=== PATIENT | female | born 1960 | race African-American/Black ===

== ENCOUNTER 2022-05-28 13:28 | Emergency (ER) | payer MEDICAID ==
[~2022-05-28] VITALS: Ht 170.2 cm; Wt 180.0 kg
[2022-05-28 13:31] VITALS: BP 122/77
[2022-05-28] MEDS ORDERED: ONDANSETRON HCL 4MG/2ML INJ IV STA (14:21)
[2022-05-28] MEDS ORDERED: SODIUM CHLORIDE 0.9% 1,000 ML IV ONE (14:30)
[2022-05-28] MEDS ORDERED: FAMOTIDINE 20MG/2ML VIAL IV ONE (14:30)
[2022-05-28] MEDS ORDERED: ACETAMINOPHEN 500MG TABLET PO ONE (14:30)
[2022-05-28] MEDS ORDERED: DIPHENHYDRAMINE 50MG/ML VIAL IV ONE (14:45)
[2022-05-28 15:26] LABS: CHLORIDE 104 mEq/L (98-107)
[2022-05-28 15:27] LABS: HEMATOCRIT. 40.8 % (36.0-48.0); HEMOGLOBIN. 13.4 g/dL (12.0-16.0); MEAN CORPUSCULAR HEMOGLOBIN 25.2 pg (28.0-32.0); MEAN CORPUSCULAR VOLUME 76.6 fL (81.0-99.0); MEAN PLATELET VOLUME 10.4 fl (7.4-10.4); PLATELET 255 x1000/uL (130-400); RED BLOOD CELL COUNT 5.32 mill/uL (4.2-5.4); RED CELL DISTRIBUTION WIDTH 14.4 % (11.6-14.6)
[2022-05-28] MEDS ORDERED: FAMO-135 MT (16:39)
[2022-05-28] MEDS ORDERED: ACET-2708 MT (16:39)
[2022-05-28 18:00] LABS: PLATELET ESTIMATE NORMAL
== END 2022-05-28 17:39 | disposition home or self-care (01) ==
LOC: ER 13:28
DX: R19.7 Diarrhea, unspecified (principal); J90 Pleural effusion, not elsewhere classified; Z88.6 Allergy status to analgesic agent
CPT/HCPCS: 36415; 76705; 80053; 83690; 85025; 93005; 96361; 96374; 96375; 99285; J1200; J2405; J3490; J7030

== ENCOUNTER 2024-04-05 09:33 | Emergency (ER) | payer SELFPAY ==
[~2024-04-05] VITALS: Ht 167.6 cm; Wt 80.0 kg
[~2024-04-05 09:33] MED LIST: ACET-2708 MT; FAMO-135 MT
[2024-04-05 09:39] VITALS: O2SAT 100
[2024-04-05] MEDS: SODIUM CHLORIDE 0.9% 500 ML IV ONE (11:15)
[2024-04-05 12:07] LABS: CHLORIDE 103 mEq/L (98-107); POTASSIUM 3.4 mEq/L (3.5-5.1); SODIUM 139 mEq/L (136-145)
[2024-04-05 12:08] LABS: CARBON DIOXIDE 23 mEq/L (21-32)
[2024-04-05 12:09] LABS: CALCIUM 10.4 mg/dL (8.7-10.4)
[2024-04-05 12:13] LABS: CREATININE 0.9 mg/dL (0.6-1.0); GLUCOSE 121 mg/dL (70-105); UREA NITROGEN BLOOD 11 mg/dL (9-23)
[2024-04-05 12:15] LABS: ALANINE AMINOTRANSFERASE 14 IU/L (10-49); ALBUMIN 4.5 g/dL (3.2-4.8); ASPARTATE AMINOTRANSFERASE 22 IU/L (<34)
[2024-04-05 12:16] LABS: BILIRUBIN TOTAL 0.7 mg/dL (0.1-1.0); PROTEIN TOTAL 8.7 g/dL (6.0-8.3)
[2024-04-05] MEDS: ONDANSETRON HCL 4MG/2ML INJ IV STA (12:23)
[2024-04-05] MEDS: MORPHINE SULFATE 4 MG/ML INJ (FOR IV/IM USE) IV STA (12:24)
[2024-04-05 12:30] LABS: BASOPHILS % 0.8 % (0.0-2.0); EOSINOPHILS % 0.2 % (0.0-5.0); HEMATOCRIT. 40.5 % (36.0-48.0); HEMOGLOBIN. 12.6 g/dL (12.0-16.0); LYMPHOCYTES % 8.4 % (20.0-50.0); MEAN CORPUSCULAR HEMOGLOBIN 24.6 pg (28.0-32.0); MEAN CORPUSCULAR HGB CONC 31.1 g/dL (31.0-37.0); MEAN CORPUSCULAR VOLUME 78.9 fL (81.0-99.0); MONOCYTES % 3.6 % (2.0-8.0); RED BLOOD CELL COUNT 5.14 mill/uL (4.2-5.4); RED CELL DISTRIBUTION WIDTH 14.4 % (11.6-14.6); WHITE BLOOD COUNT 11.3 x1000/uL (4.5-11.0)
[2024-04-05 12:32] LABS: DIFFERENTIAL COMMENT 1
[2024-04-05 13:39] LABS: PLATELET 240 x1000/uL (130-400)
[2024-04-05 15:34] LABS: CLARITY URINE CLOUDY (CLEAR); COLOR URINE YELLOW (YELLOW); GLUCOSE URINE NEGATIVE (NEGATIVE); KETONES URINE TRACE (NEGATIVE); LEUKOCYTE ESTERASE URINE 2+ (NEGATIVE); NITRITE URINE NEGATIVE (NEGATIVE); OCCULT BLOOD URINE NEGATIVE (NEGATIVE); PROTEIN URINE TRACE (NEGATIVE); UROBILINOGEN URINE 0.2 E.U./dL (0.2-1.0)
[2024-04-05] MEDS ORDERED: SULF1TAB48 MT (15:36)
[2024-04-05 16:16] LABS: BACTERIA URINE 2+
[2024-04-05 16:17] LABS: RBC URINE 0-2 /hpf (0-2); SQUAMOUS EPITHELIAL CELL URINE 2+ /lpf (RARE/1+)
[2024-04-05 16:19] VITALS: BP 146/68; PULSE 81; RESP 18; TEMP 36.89184; O2SAT 100
== END 2024-04-05 16:19 | disposition home or self-care (01) ==
LOC: ER 09:37
DX: N39.0 Urinary tract infection, site not specified (principal); R10.84 Generalized abdominal pain; R11.2 Nausea with vomiting, unspecified; R19.7 Diarrhea, unspecified
CPT/HCPCS: 99285; 74176; 96374; 96361; 96375; 80053; 81003; 83690; 85025; 36415; J2405; J2270; J7030